=== PATIENT | male | born 1960 | race Caucasian/White ===

== ENCOUNTER 2016-04-29 11:27 | Emergency (ER) | payer OTHER ==
[~2016-04-29] VITALS: Ht 165.1 cm; Wt 74.8 kg
[~2016-04-29 11:27] MED LIST: CYMBALTA60 MG PO; Motrin,Rufen800 MG PO; REXULTI1 MG PO; VALIUM5 MG PO; ZANTAC150 MG PO; ZOFRAN4 MG PO; ZYPREXA15 M1 PO
[2016-04-29 12:26] LABS: BASO # 0.1 10*3/uL (0.0-0.1); BASO % 0.5 % (0.0-1.0); EOS % 0.3 % (1.0-4.0); HEMATOCRIT 43.8 % (42.0-52.0); HEMOGLOBIN 14.8 g/dl (14.0-18.0); LYMPH # 1.1 10*3/uL (1.3-4.4); LYMPH % 7.6 % (27.0-41.0); MEAN CELL VOLUME 91.6 fl (80.0-94.0); MEAN CORPUSCULAR HGB CONC 33.8 g/dl (33.0-37.0); MEAN PLATELET VOLUME 10.3 fl (9.6-12.3); MONO # 0.6 10*3/uL (0.1-1.0); MONO % 4.4 % (3.0-9.0); NEUT # 12.1 10*3/uL (2.3-7.9); NEUT % 86.9 % (47.0-73.0); PLATELET COUNT AUTOMATED 197 10*3/uL (130-400); RED BLOOD COUNT 4.78 10*6/uL (4.50-5.90); RED CELL DISTRI WIDTH 13.8 % (0-14.5); WHITE BLOOD COUNT 13.9 10*3/uL (4.8-10.8)
[2016-04-29 12:45] LABS: ALBUMIN 3.3 gm/dl (3.1-4.5); ALKALINE PHOSPHATASE 52 U/L (45-117); BILIRUBIN, TOTAL 0.4 mg/dl (0.2-1.0); BUN 24 mg/dl (7-24); CARBON DIOXIDE 22 mmol/L (21-32); CHLORIDE 109 mmol/L (98-107); EST GLOM FILT AFRICAN AMERICAN > 60 ml/min; GLUCOSE 162 mg/dL (65-99); MAGNESIUM 2.2 mg/dL (1.5-2.1); POTASSIUM 3.8 mmol/L (3.5-5.1); SGOT/AST 14 IU/L (3-35); SGPT/ALT 23 U/L (12-78); SODIUM 146 mmol/L (136-145); TOTAL PROTEIN 7.2 gm/dL (6.4-8.2)
[2016-04-29 12:46] LABS: TROPONIN I < 0.015 ng/ml (<0.045)
[2016-04-29 13:01] LABS: INTERNATIONAL NORM RATIO 1.1 (2.0-3.5); PROTHROMBIN TIME 11.3 SECONDS (9.0-12.4)
[2016-04-29 13:01] LABS: BILIRUBIN NEGATIVE (NEGATIVE); BLOOD 3+ (NEGATIVE); CLARITY SL CLOUDY (CLEAR); COLOR YELLOW (YELLOW); GLUCOSE NEGATIVE (NEGATIVE); KETONE 1+ (NEGATIVE); LEUKO ESTERASE NEGATIVE (NEGATIVE); NITRITE NEGATIVE (NEGATIVE); PH 5.5 (5.0-9.0); PROTEIN NEGATIVE (NEGATIVE); UROBILINOGEN 0.2 E.U./dl (0.2-1.0)
[2016-04-29 13:11] LABS: BACTERIA TRACE; RBC 21-30 rbc/hpf (0-2)
[2016-04-29 13:12] LABS: URINE AMPHETAMINES < 1000 (1000ng/ml); URINE BARBITURATES < 200 (200ng/ml); URINE COCAINE < 300 (300ng/ml); URINE REFLEX COMMENT YES (NO)
== END 2016-04-29 14:25 | disposition short-term general hospital (02) ==
LOC: ED 11:27
PROVIDERS: Emergency Medicine Emergency Medical Services
DX: R41.82 Altered mental status, unspecified (principal)

== ENCOUNTER 2016-05-02 15:20 | Inpatient (IN) | payer OTHER ==
[~2016-05-02] VITALS: Ht 180.3 cm; Wt 63.5 kg
--- NOTE | ~2016-05-02 | WRIGHTHP ---
[place], [place] PATIENT HISTORY AND PHYSICAL EXAM NAME: SHALA CANTU JR [facility] #: [id number] UNIT #: [id number] ROOM: 317 DOCTOR: IGNACIO VALERIO MD BIRTHDATE: [birth year] DOS: 05/02/2016 CHIEF COMPLAINT: "I tried to commit suicide. I have been so depressed." HISTORY OF PRESENT ILLNESS: This is a 56-year-old white male who was admitted to the [facility] for suicidal ideation. The patient had been admitted to [facility] for suicide attempt several days ago when he swallowed a handful of Seroquel. The patient reports that he has dealt with episodic depression and mood lability for sometime and has not always been compliant with his medicine. He is very vague, however, upon admission as far as what symptoms he is having. Complicating matters is there is the possibility that legal charges are pending. He is admitted now to further rule out organic factors to gather more information, to engage in individual and an milieu activity while restabilizing on medication. PAST MEDICAL HISTORY: Remarkable for degenerative disk disease, COPD, and a long history of bipolar disorder. MENTAL STATUS: The patient is alert and oriented to person, place, and time. Mood is somewhat down with anxious overtones and he does endorse mood lability. There are no auditory or visual hallucinations. No delusions, no paranoia. Short, intermediate, and long-term memory is intact. DIAGNOSIS: Bipolar type 1, mixed. PLAN: I have started him back on Cymbalta 60 mg at bedtime, Zyprexa 20 mg at bedtime. I will discontinue the Vraylar. He does report in the past that the Zyprexa has been helpful: Screening examination show him to have a low vitamin D level. We will treat him with vitamin D 50,000 International Units weekly, engage in individual and an milieu therapy, returning home or to the least restrictive environment when stable. IGNACIO VALERIO MD CM:HISPHYS:PATIENT HISTORY AND PHYSICAL EXAMINATION [phone] IGNACIO VALERIO MD 05/03/16 0939 interface
--- NOTE | ~2016-05-02 | DS ---
[place], [place] DISCHARGE SUMMARY NAME[id number] UN[facility] #: [id number] ROOM: 317 DOCTOR: IGNACIO VALERIO MD BIRTHDATE: [birth year] DOS: 05/05/2016 CHIEF COMPLAINT: "I tried to commit suicide. I have been so depressed." HISTORY OF PRESENT ILLNESS: This is a 56-year-old white male who was admitted to the [facility] for suicidal ideation. Initially, the patient was admitted to [facility] for suicide attempts several days ago during which time he had swallowed a handful of Seroquel. Per the patient's report, he has dealt with episodic depression and mood lability for years, but has not always been compliant with his medication. Upon admission here, he was very vague and stated that his symptoms have come and gone, but have been worsening lately. Complicating matters is the fact that there are apparent legal charges pending and the patient may be utilizing the hospitalization to avoid these charges. In any case, he was admitted now to the [facility] to rule out further organic factors, to gain more information as to what the situation truly is, to help him engage in individual and an milieu activity while attempting to restabilize on medication. PAST MEDICAL HISTORY: Remarkable for degenerative disk disease, COPD, and a reported long history of bipolar disorder. SUMMARY OF THE HOSPITAL COURSE: The patient was admitted to the unit where he was started back on his Cymbalta 60 mg at bedtime. His Lamictal was likewise continued. The patient did report that he has done the best when he has been on Zyprexa, stating that the Zyprexa not only stabilizes his mood, but it does also help him sleep better and eat better. Given the fact that he is a rather thin gentleman, it was felt that the Zyprexa would be a reasonable medication to utilize so his Vraylar that was initially started was discontinued in lieu of Zyprexa 20 mg at bedtime. Initial screening examinations to rule out organic factors did show him to have a very low vitamin D level. So, vitamin D 50,000 International Units weekly was started. After just several days of medication, the patient did report that his sleep and appetite normalized, that his mood did seem to improve, he was voicing positive plans for discharge and felt ready to return back home into the [facility]. The patient convincingly denied any suicidal thoughts, homicidal thoughts, or self-injurious thoughts and was voicing positive plans for the future. Likewise, he denied any somnolence, sedation, extrapyramidal symptoms, or tardive dyskinesia. The patient was discharged then on 05/05/2016 to return home. Follow up will be with the [facility]. MENTAL STATUS AT DISCHARGE: The patient is alert and oriented to person, place, and time. Mood was fairly euthymic. Affect appropriate. There were no symptoms of carlos or hypomania. There were no overt auditory or visual hallucinations. No delusions, no paranoia. Short, intermediate, and long-term memory were intact. FINAL DIAGNOSIS: Bipolar type 2. PLAN: The patient is to return home. All of his prescriptions have been E-scribed to [facility] and he will have followup at the [facility]. [place], [place] DISCHARGE SUMMARY NAME: PEPE BENNETTJULIAHANK Lynn [facility] [id number] UNIT #: [id number] ROOM: [facility] DOCTOR: IGNACIO VALERIO MD BIRTHDATE: [birth year] IGNACIO VALERIO MD CM:ARPAN 1 IGNACIO VALERIO MD 05/05/16 0853 interface
--- NOTE | ~2016-05-02 | PR ---
[place], [place] PROGRESS NOTE [id number] #: [id number] ROOM: 317 DOCTOR: LEONELA EASTON BIRTHDATE: [birth year] DOS: 05/04/2016 CHIEF COMPLAINT: "Good morning." SUMMARY OF VISIT: The patient was assessed and interviewed in the dining room where he has finished up breakfast and he was drinking coffee. He engaged readily in conversation. States that he has got a good appetite. He slept very well last night, does not feel that there are any side effects of the medications. There is no voiced complaints from Nursing. No voice complaints from patient. When I asked if he was anxious, worried, or depressed, he is no. MENTAL STATUS: He is alert and oriented to person, place, time and mood. I think he is trending towards euthymic. I am not sure that he is not a little anxious or worried based on his current legal situations, but he did state that he feels like he is doing better than he was when he first got here. There are no overt signs of auditory or visual hallucinations, delusions, paranoia, carlos or hypomania. Overall, memory appears to be intact. ASSESSMENT AND PLAN: He was started back on his medications. He stated that he took all his medications as prescribed yesterday. I will continue with the current medications since he has had significant medication adjustments in the last 24 hours. We will continue with the medications as is and adjust accordingly. LUIS EASTON CNP CM:PNTRANS [phone] LEONELA EASTON 05/04/16 1001 interface
[2016-05-02] MEDS ORDERED: LAMOTRIGINE100 MG PO (15:40)
[2016-05-02] MEDS ORDERED: K-LOR 20MEQ20 ME1 PO (15:44)
[2016-05-02] MEDS ORDERED: K-Lor 20MEQ20 MEQ PO (15:44)
[2016-05-02 17:52] VITALS: BP 136/85
[2016-05-02 17:57] VITALS: BP 136/85
[2016-05-02 19:58] LABS: URINE AMPHETAMINES < 1000 (1000ng/ml); URINE BARBITURATES < 200 (200ng/ml); URINE COCAINE < 300 (300ng/ml)
[2016-05-02 20:49] VITALS: BP 121/70
[2016-05-03 06:42] LABS: BASO # 0.1 10*3/uL (0.0-0.1); BASO % 1.2 % (0.0-1.0); EOS # 0.3 10*3/uL (0.0-0.4); EOS % 4.7 % (1.0-4.0); HEMATOCRIT 39.7 % (42.0-52.0); HEMOGLOBIN 13.4 g/dl (14.0-18.0); LYMPH # 2.1 10*3/uL (1.3-4.4); LYMPH % 32.4 % (27.0-41.0); MEAN CELL VOLUME 91.1 fl (80.0-94.0); MEAN CORPUSCULAR HGB 30.7 pg (27.0-31.0); MEAN CORPUSCULAR HGB CONC 33.8 g/dl (33.0-37.0); MEAN PLATELET VOLUME 9.8 fl (9.6-12.3); MONO # 0.7 10*3/uL (0.1-1.0); MONO % 10.9 % (3.0-9.0); NEUT # 3.3 10*3/uL (2.3-7.9); NEUT % 50.5 % (47.0-73.0); PLATELET COUNT AUTOMATED 206 10*3/uL (130-400); RED BLOOD COUNT 4.36 10*6/uL (4.50-5.90); RED CELL DISTRI WIDTH 13.2 % (0-14.5); WHITE BLOOD COUNT 6.6 10*3/uL (4.8-10.8)
[2016-05-03 06:58] LABS: HEMOGLOBIN A1c 5.6 % (4.8-5.6)
[2016-05-03 07:18] LABS: ALBUMIN 2.9 gm/dl (3.1-4.5); BUN 8 mg/dl (7-24); CARBON DIOXIDE 32 mmol/L (21-32); CHLORIDE 105 mmol/L (98-107); CHOLESTEROL 127 mg/dL (<200); EST GLOM FILT AFRICAN AMERICAN > 60 ml/min; GLUCOSE 90 mg/dL (65-99); POTASSIUM 3.1 mmol/L (3.5-5.1); SGOT/AST 31 IU/L (3-35); SGPT/ALT 28 U/L (12-78); SODIUM 144 mmol/L (136-145); TRIGLYCERIDES 79 mg/dl (<150); VLDL CHOLESTEROL 16 mg/dL (6-40)
[2016-05-03 07:25] LABS: VITAMIN D, 25-HYDROXY 11.2 ng/mL (30-100)
[2016-05-03 07:26] LABS: FOLIC ACID 14.28 ng/mL (>5.38)
[2016-05-03 07:28] LABS: ALKALINE PHOSPHATASE 46 U/L (45-117); BILIRUBIN, TOTAL 0.5 mg/dl (0.2-1.0); HDL CHOLESTEROL 33 mg/dl (40-60); LDL CHOLESTEROL 78 mg/dL (9-159); TOTAL PROTEIN 6.5 gm/dL (6.4-8.2)
[2016-05-03 08:30] VITALS: BP 120/75; BP 145/76
[2016-05-03 17:14] LABS: BILIRUBIN NEGATIVE (NEGATIVE); BLOOD NEGATIVE (NEGATIVE); CLARITY CLOUDY (CLEAR); COLOR YELLOW (YELLOW); GLUCOSE NEGATIVE (NEGATIVE); KETONE NEGATIVE (NEGATIVE); LEUKO ESTERASE NEGATIVE (NEGATIVE); NITRITE NEGATIVE (NEGATIVE); PROTEIN NEGATIVE (NEGATIVE); SPECIFIC GRAVITY 1.015 (1.005-1.030)
[2016-05-03 17:23] LABS: BACTERIA 2+; EPITHELIAL CELLS 0-2; URINE REFLEX COMMENT YES (NO)
[2016-05-03 20:13] VITALS: BP 125/74
[2016-05-04 08:10] VITALS: BP 126/73
[2016-05-04 19:00] VITALS: BP 112/76
[2016-05-05] MEDS ORDERED: OLANZAPINE10 MG PO (07:53)
[2016-05-05] MEDS ORDERED: HYDROXYZINE PAM25 M1 PO (07:53)
[2016-05-05] MEDS ORDERED: VITAMIN D50000 I3 PO (07:53)
[2016-05-05 08:14] VITALS: BP 140/83
[2016-05-05] MEDS ORDERED: KLOR-CON M2020 ME1 PO (12:15)
== END 2016-05-05 13:35 | disposition home or self-care (01) | DRG 885 ==
LOC: 3N 15:20
PROVIDERS: Psychiatry & Neurology Psychiatry
DX: F31.81 Bipolar II disorder (principal); R00.1 Bradycardia, unspecified; M19.90 Unspecified osteoarthritis, unspecified site; J44.9 Chronic obstructive pulmonary disease, unspecified; F41.9 Anxiety disorder, unspecified; F12.10 Cannabis abuse, uncomplicated; F19.10 Other psychoactive substance abuse, uncomplicated; E87.6 Hypokalemia; Z79.1 Long term (current) use of non-steroidal anti-inflammatories (NSAID)

== ENCOUNTER → 2016-06-27 | Outpatient (CLI) | payer OTHER ==
[~2016-06-27] MED LIST changes: +HYDROXYZINE PAM25 M1 PO; +K-LOR 20MEQ20 ME1 PO; +K-Lor 20MEQ20 MEQ PO; +KLOR-CON M2020 ME1 PO; +LAMOTRIGINE100 MG PO; +OLANZAPINE10 MG PO; +VITAMIN D50000 I3 PO
[2016-06-27 11:52] LABS: BASO # 0.1 10*3/uL (0.0-0.1); BASO % 1.4 % (0.0-1.0); EOS # 0.1 10*3/uL (0.0-0.4); EOS % 1.4 % (1.0-4.0); HEMATOCRIT 46.7 % (42.0-52.0); HEMOGLOBIN 15.7 g/dl (14.0-18.0); LYMPH # 1.6 10*3/uL (1.3-4.4); LYMPH % 29.4 % (27.0-41.0); MEAN CELL VOLUME 91.4 fl (80.0-94.0); MEAN CORPUSCULAR HGB 30.7 pg (27.0-31.0); MEAN CORPUSCULAR HGB CONC 33.6 g/dl (33.0-37.0); MEAN PLATELET VOLUME 9.8 fl (9.6-12.3); MONO # 0.5 10*3/uL (0.1-1.0); MONO % 9.5 % (3.0-9.0); NEUT # 3.2 10*3/uL (2.3-7.9); NEUT % 57.9 % (47.0-73.0); PLATELET COUNT AUTOMATED 241 10*3/uL (130-400); RED BLOOD COUNT 5.11 10*6/uL (4.50-5.90); RED CELL DISTRI WIDTH 13.5 % (0-14.5); WHITE BLOOD COUNT 5.6 10*3/uL (4.8-10.8)
[2016-06-27 12:06] LABS: ALBUMIN 3.8 gm/dl (3.1-4.5); ALKALINE PHOSPHATASE 58 U/L (45-117); BILIRUBIN, TOTAL 0.5 mg/dl (0.2-1.0); BUN 12 mg/dl (7-24); CARBON DIOXIDE 30 mmol/L (21-32); CHLORIDE 106 mmol/L (98-107); CHOLESTEROL 166 mg/dL (<200); EST GLOM FILT AFRICAN AMERICAN > 60 ml/min; GLUCOSE 95 mg/dL (65-99); HDL CHOLESTEROL 48 mg/dl (40-60); LDL CHOLESTEROL 103 mg/dL (9-159); POTASSIUM 3.9 mmol/L (3.5-5.1); SGOT/AST 19 IU/L (3-35); SGPT/ALT 25 U/L (12-78); SODIUM 140 mmol/L (136-145); TOTAL PROTEIN 7.7 gm/dL (6.4-8.2); TRIGLYCERIDES 75 mg/dl (<150); VLDL CHOLESTEROL 15 mg/dL (6-40)
== END | disposition home or self-care (01) ==
LOC: LAB 11:15
PROVIDERS: Nurse Practitioner Family
DX: F31.81 Bipolar II disorder (principal)

== ENCOUNTER 2017-10-26 13:51 | Inpatient (IN) | payer OTHER ==
[~2017-10-26] VITALS: Ht 177.8 cm; Wt 61.7 kg
--- NOTE | ~2017-10-26 | DS ---
[place], [place] DISCHARGE SUMMARY NAME: SHALA CANTU JR [facility] #: [id number] UNIT #: [id number] ROOM: 312 DOCTOR: IGNACIO VALERIO MD BIRTHDATE: [birth year] DOS: 10/29/2017 CHIEF COMPLAINT: "I ran out of my medicine and I got so depressed." HISTORY OF PRESENT ILLNESS: This is a 57-year-old white male who presented to the Emergency Room at [facility] with worsening depression and suicidal ideation and a plan. The patient had just been discharged from the [facility] and was stabilized on Zyprexa and Cymbalta; however, he missed his appointment at [facility] with Eve Huffman and ran out of his medicine. He went 3 weeks without being on these medicines and decompensated greatly. He became very depressed and very preoccupied with . The auditory hallucinations came back and were keeping him awake at night and making him feel overwhelmed. He felt that the only way out was to commit suicide. Instead, he went to the Emergency Room for help and was admitted to the [facility] to re-stabilize on medication. SUMMARY OF HOSPITAL COURSE: The patient was admitted to the unit where he was restarted on Zyprexa 10 mg twice daily and Cymbalta 60 mg a day. The Cymbalta was later increased to 60 mg twice daily while the Zyprexa was maintained at its 10 mg twice daily dose. It was not long before he began to notice improvement in his mood. His sleep and appetite normalized very quickly. The voices within a matter of days dissipated. He voiced no side effects from the medicine and was very happy that he was back on his medicines and stated that these medicines worked the best for him than anything he has been on. We discussed ways he needed to keep himself healthy and follow up with his outpatient appointments, so this does not happen again. He was discharged then on 10/29/2017 to return home. MENTAL STATUS AT DISCHARGE: He is alert and oriented. Mood does seem to be euthymic. Affect appropriate. There is no carlos, hypomania or psychosis. Short, intermediate, and long-term memory are fully intact. FINAL DIAGNOSIS: Major depression, recurrent with psychotic features. DISPOSITION: His prescriptions have been e-scribed to [facility]. He will have followup with Eve Huffman, the nurse practitioner at [facility]. He is stable medically and psychiatrically. [place], [place] DISCHARGE SUMMARY NAME: SHALA CANTU JR UNIT #: [id number] ROOM: 312 DOCTOR: IGNACIO VALERIO MD BIRTHDATE: [birth year] IGNACIO VALERIO MD CM:DISCHARG [id number] IGNACIO VALERIO MD 10/29/17 1001 interface
--- NOTE | ~2017-10-26 | WRIGHTHP ---
[place], [place] PATIENT HISTORY AND PHYSICAL EXAM [id number] #: [id number] ROOM: 312 DOCTOR: IGNACIO VALERIO MD BIRTHDATE: [birth year] DOS: 10/27/2017 INITIAL PSYCHIATRIC EVALUATION CHIEF COMPLAINT: "I ran out of my medicine and got so depressed." HISTORY OF PRESENT ILLNESS: This is a 57-year-old white male who presented to the Emergency Room at [facility] with worsening depression with suicidal ideation and a plan. The patient had just been discharged from the [facility] and stabilized on Zyprexa and Cymbalta; however, he missed his appointment at [facility] office and was out of his medicines. He went 3 weeks without being on Zyprexa or the Cymbalta and during this period of time, he became increasingly more despondent. His sleep became very poor to the point where he was not sleeping at night and the voices came back, he felt that the only way out was to take an overdose. Instead, he came to the Emergency Room for help. He does have previous overdose attempts in the past and multiple psychiatric admissions. He is admitted now to re-stabilize on medication, to engage in individual and an milieu activity, returning then to the least restrictive environment when psychiatrically stable. PAST MEDICAL HISTORY: Positive for degenerative disk disease, COPD, and bipolar disorder. SOCIAL HISTORY: He does not drink alcohol, use illicit drugs or smoke cigarettes. ALLERGIES: He has no known allergies. STRENGTHS: Ambulatory, good verbal skills, supportive environment. WEAKNESSES: Chronic severe mental health issues and poor coping skills. MENTAL STATUS: He is alert and oriented to person, place, and time. Mood is overwhelmingly depressed. Affect is flat, blunted with a constricted range. He endorses multiple neurovegetative symptoms. He also endorses positive hallucinations. There is no mood swings or carlos. Memory is fairly intact. DIAGNOSIS: Major depression, recurrent with psychotic features, rule out schizoaffective disorder. PLAN: I have restarted Zyprexa at 10 mg twice a day and started Cymbalta at 60 mg a day. I will increase the Cymbalta first bringing it to 60 mg twice daily, engage in individual and an milieu activity, returning to the least restrictive environment when psychiatrically stable. [place], [place] PATIENT HISTORY AND PHYSICAL EXAM NAME: SHALA CANTU JR UNIT #: [id number] ROOM: 312 DOCTOR: IGNACIO VALERIO MD BIRTHDATE: [birth year] IGNACIO VALERIO MD CM:HISPHYS:PATIENT HISTORY AND PHYSICAL EXAMINATION [id number] IGNACIO VALERIO MD 10/27/17 0811 interface
--- NOTE | ~2017-10-26 | PR ---
[place], [place] PROGRESS NOTE [id number] UNIT #: [id number] ROOM: 312 DOCTOR: IGNACIO VALERIO MD BIRTHDATE: [birth year] DOS: 10/28/2017 CHIEF COMPLAINT: "I am feeling better doctor. Thank you so much." SUMMARY OF THE VISIT: The patient was interviewed in his room. He was sitting at the edge of the bed, waiting for me to round. He engaged readily in conversation and reported to me that he slept well, ate well and is already noticing a difference now that he has resumed his medicines. He convincingly denies medication side effects. We discussed how we need to develop the system, so he does not run out of his medicines since he responds so robustly to them and decompensates very quickly without them. MENTAL STATUS: He is alert and oriented to person, place, and time. Mood is euthymic. Affect appropriate. No carlos, hypomania or psychosis exists. Memory is intact. PLAN: I will maintain his current psychotropic regimen. We will discuss the case with social insurance analyst, so we can put things in place to prevent relapse. IGNACIO VALERIO MD CM:PNTRANS 9 [phone] IGNACIO VALERIO MD 10/28/172201 interface
--- NOTE | ~2017-10-26 | EKG ---
[place], [place] ELECTROCARDIOGRAM REPORT NAME: SHALA CANTU JR UNIT #: [id number] ROOM: 312 DOCTOR: BOB DRAFT REPORT BIRTHDATE: [birth year] [facility] Test Date: 2017-10-26 Test Time: 14:33:10 Pat Name: SHALA CANTU Department: Room: 312 Gender: M Wiring Technician: : 1960 Requested By: ANTONELLA DUGAN PA-C Order Number: [id number] Reading MD: Verna Crowell MD Measurements Intervals Cornelius Rate: 65 P: 77 IL: 129 QRS: 75 QRSD: 99 T: 53 QT: 397 QTc: 413 Interpretive Statements Sinus rhythm RSR' in V1 or V2, right VCD or RVH Borderline ST elevation, anterolateral leads Electronically Signed On 10-29-2017 9:34:03 PDT by Verna Crowell MD CM:EKGRPT:ELECTROCARDIOGRAM REPORT [id number] ANTONELLA DUGAN PA-C EPIPHANY DRAFT REPORT ANTONELLA DUGAN PA-C
[2017-10-26 13:53] VITALS: BP 120/58
[2017-10-26 14:53] LABS: BILIRUBIN NEGATIVE (NEGATIVE); BLOOD TRACE-INTACT (NEGATIVE); CLARITY CLEAR (CLEAR); COLOR YELLOW (YELLOW); GLUCOSE NEGATIVE (NEGATIVE); KETONE NEGATIVE (NEGATIVE); LEUKO ESTERASE TRACE (NEGATIVE); NITRITE NEGATIVE (NEGATIVE); SPECIFIC GRAVITY <= 1.005 (1.005-1.030); UROBILINOGEN 0.2 E.U./dl (0.2-1.0)
[2017-10-26 14:56] LABS: BASO # 0.1 10*3/uL (0.0-0.1); EOS # 0.3 10*3/uL (0.0-0.4); EOS % 4.6 % (1.0-4.0); HEMATOCRIT 44.7 % (42.0-52.0); HEMOGLOBIN 14.5 g/dl (14.0-18.0); LYMPH # 2.1 10*3/uL (1.3-4.4); LYMPH % 30.3 % (27.0-41.0); MEAN CELL VOLUME 92.7 fl (80.0-94.0); MEAN CORPUSCULAR HGB 30.1 pg (27.0-31.0); MEAN CORPUSCULAR HGB CONC 32.4 g/dl (33.0-37.0); MEAN PLATELET VOLUME 10.6 fl (9.6-12.3); MONO # 0.7 10*3/uL (0.1-1.0); MONO % 9.8 % (3.0-9.0); NEUT # 3.8 10*3/uL (2.3-7.9); PLATELET COUNT AUTOMATED 210 10*3/uL (130-400); RED BLOOD COUNT 4.82 10*6/uL (4.50-5.90); RED CELL DISTRI WIDTH 14.6 % (0-14.5)
[2017-10-26 15:03] LABS: URINE AMPHETAMINES < 1000 (1000ng/ml); URINE BARBITURATES < 200 (200ng/ml); URINE BENZODIAZEPINES > 200 (200ng/ml); URINE CANNABINOIDS (THC) > 50 (50ng/ml); URINE COCAINE < 300 (300ng/ml); URINE METHADONE < 300 (300ng/ml); URINE OPIATES < 300 (300ng/ml)
[2017-10-26 15:04] LABS: URINE PHENCYCLIDINE < 25 (25ng/ml)
[2017-10-26 15:14] LABS: ALBUMIN 3.4 gm/dl (3.1-4.5); BUN 14 mg/dl (7-24); CHLORIDE 105 mmol/L (98-107); CREATININE 1.11 mg/dL (0.70-1.30); POTASSIUM 3.8 mmol/L (3.5-5.1); SGPT/ALT 30 U/L (12-78); SODIUM 141 mmol/L (136-145)
[2017-10-26 15:15] LABS: ALKALINE PHOSPHATASE 50 U/L (45-117); SGOT/AST 15 IU/L (3-35)
[2017-10-26 15:17] LABS: ACETAMINOPHEN (TYLENOL) < 2.0 ug/ml (10-30); ETHYL ALCOHOL < 3.0 mg/dl (<3)
[2017-10-26 15:23] LABS: THYROID STIM HORMONE (HS) 0.983 uIU/ml (0.358-4.75)
[2017-10-26 15:33] LABS: BACTERIA TRACE; EPITHELIAL CELLS 0-3; RBC 0-2 rbc/hpf (0-2); WBC 0-2 wbc/hpf (0-5)
[2017-10-26] MEDS ORDERED: IBU800 M2 PO (18:27)
[2017-10-26 18:30] VITALS: BP 112/62
[2017-10-26 18:41] VITALS: BP 108/67; BP 112/62
[2017-10-26 19:55] VITALS: BP 108/67
[2017-10-27 07:16] LABS: CHOLESTEROL 121 mg/dL (<200); TRIGLYCERIDES 95 mg/dl (<150); VLDL CHOLESTEROL 19 mg/dL (6-40)
[2017-10-27 07:18] LABS: HDL CHOLESTEROL 33 mg/dl (40-60); LDL CHOLESTEROL 69 mg/dL (9-159)
[2017-10-27 07:53] VITALS: BP 118/73
[2017-10-27 19:42] VITALS: BP 120/67
[2017-10-28 07:47] VITALS: BP 107/66
[2017-10-28 19:58] VITALS: BP 119/73
[2017-10-29 07:58] VITALS: BP 114/66
[2017-10-29] MEDS ORDERED: Vitamin D PO (08:42)
[2017-10-29] MEDS ORDERED: LAMOTRIGINE100 MG PO (08:42)
[2017-10-29] MEDS ORDERED: DULOXETINE HCL60 MG PO ×2 (08:42)
[2017-10-29] MEDS ORDERED: OLANZAPINE10 MG PO (08:42)
[2017-12-25] MEDS ORDERED: LAMOTRIGINE100 MG PO (16:38)
[2017-12-25] MEDS ORDERED: MUCINEX ER600 MG PO (16:38)
[2017-12-25] MEDS ORDERED: GOOD NEIGHBOR L10 MG PO (16:38)
[2017-12-25] MEDS ORDERED: OLANZAPINE10 MG PO (16:38)
[2017-12-25] MEDS ORDERED: PREDNISONE10 MG PO (16:38)
[2017-12-25] MEDS ORDERED: DULOXETINE HCL60 MG PO (16:38)
[2018-01-08] MEDS ORDERED: CYMBALTA60 MG PO (13:28)
[2018-01-08] MEDS ORDERED: LAMICTAL100 MG PO (13:28)
[2018-01-08] MEDS ORDERED: OLANZAPINE10 MG PO (13:29)
[2018-01-12] MEDS ORDERED: OLANZAPINE10 MG PO (10:37)
[2018-01-12] MEDS ORDERED: DULOXETINE HCL60 MG PO (10:37)
[2018-01-12] MEDS ORDERED: OLANZAPINE5 MG PO (10:37)
== END 2017-10-29 16:45 | disposition home or self-care (01) | DRG 885 ==
LOC: ED 13:51 → 3N 17:02
PROVIDERS: Physician Assistant; Psychiatry & Neurology Psychiatry
DX: F33.3 Major depressive disorder, recurrent, severe with psychotic symptoms (principal); R45.851 Suicidal ideations; N39.0 Urinary tract infection, site not specified; J44.9 Chronic obstructive pulmonary disease, unspecified; F12.10 Cannabis abuse, uncomplicated; F13.10 Sedative, hypnotic or anxiolytic abuse, uncomplicated; M51.36 Other intervertebral disc degeneration, lumbar region; F41.9 Anxiety disorder, unspecified; Z79.899 Other long term (current) drug therapy

== ENCOUNTER 2018-10-21 09:58 | Emergency (ER) | payer OTHER ==
[~2018-10-21] VITALS: Ht 177.8 cm; Wt 61.2 kg
[~2018-10-21 09:58] MED LIST changes: +DULOXETINE HCL60 MG PO; +GOOD NEIGHBOR L10 MG PO; +IBU800 M2 PO; +LAMICTAL100 MG PO; +MUCINEX ER600 MG PO; +OLANZAPINE5 MG PO; +PREDNISONE10 MG PO; +Vitamin D PO
[2018-10-21 10:00] VITALS: BP 123/84
[2018-10-21 10:39] LABS: BASO # 0.1 10*3/uL (0.0-0.1); BASO % 0.7 % (0.0-1.0); EOS # 0.3 10*3/uL (0.0-0.4); EOS % 3.3 % (1.0-4.0); HEMATOCRIT 45.5 % (42.0-52.0); HEMOGLOBIN 14.8 g/dl (14.0-18.0); LYMPH # 1.2 10*3/uL (1.3-4.4); MEAN CORPUSCULAR HGB 30.3 pg (27.0-31.0); MEAN CORPUSCULAR HGB CONC 32.5 g/dl (33.0-37.0); MEAN PLATELET VOLUME 10.2 fl (9.6-12.3); MONO # 0.9 10*3/uL (0.1-1.0); MONO % 9.7 % (3.0-9.0); NEUT # 6.9 10*3/uL (2.3-7.9); NEUT % 73.1 % (47.0-73.0); PLATELET COUNT AUTOMATED 239 10*3/uL (130-400); RED BLOOD COUNT 4.89 10*6/uL (4.50-5.90); RED CELL DISTRI WIDTH 14.9 % (0-14.5); WHITE BLOOD COUNT 9.4 10*3/uL (4.8-10.8)
[2018-10-21 10:49] LABS: BUN 9 mg/dl (7-24); CHLORIDE 104 mmol/L (98-107); CREATININE 0.91 mg/dL (0.70-1.30); POTASSIUM 3.7 mmol/L (3.5-5.1); SODIUM 139 mmol/L (136-145)
[2018-10-21 10:50] LABS: ACT PARTIAL THROMBO TIME 28.3 SECONDS (20.0-32.1)
[2018-10-21] MEDS ORDERED: CLINDAMYCIN HC300 MG PO (14:11)
[2018-10-21] MEDS ORDERED: TYLENOL325 M1 PO (14:11)
[2018-10-21] MEDS ORDERED: NAPROSYN500 MG PO (14:11)
== END 2018-10-21 14:22 | disposition home or self-care (01) ==
LOC: ED 09:58
PROVIDERS: Emergency Medicine
DX: L03.114 Cellulitis of left upper limb (principal); J44.9 Chronic obstructive pulmonary disease, unspecified; F17.210 Nicotine dependence, cigarettes, uncomplicated

== ENCOUNTER 2019-09-25 09:54 | Emergency (ER) | payer OTHER ==
[~2019-09-25] VITALS: Ht 177.8 cm; Wt 61.2 kg
[~2019-09-25 09:54] MED LIST changes: +CLINDAMYCIN HC300 MG PO; +NAPROSYN500 MG PO; +TYLENOL325 M1 PO
[2019-09-25 09:58] VITALS: BP 140/85
[2019-09-25] MEDS ORDERED: MEDROL DOSEPAK4 MG PO (10:38)
[2019-09-25] MEDS ORDERED: NAPROSYN500 MG PO (10:38)
[2019-09-25] MEDS ORDERED: METHOCARBAMOL500 M1 PO (10:38)
== END 2019-09-25 11:16 | disposition home or self-care (01) ==
LOC: ED 09:54
DX: S39.012A Strain of muscle, fascia and tendon of lower back, initial encounter (principal); F17.200 Nicotine dependence, unspecified, uncomplicated; X50.0XXA Overexertion from strenuous movement or load, initial encounter; Y93.89 Activity, other specified; Y92.89 Other specified places as the place of occurrence of the external cause; Y99.8 Other external cause status

== ENCOUNTER 2020-04-10 09:02 | Emergency (ER) | payer OTHER ==
[~2020-04-10] VITALS: Ht 177.8 cm; Wt 61.2 kg
[~2020-04-10 09:02] MED LIST changes: +MEDROL DOSEPAK4 MG PO; +METHOCARBAMOL500 M1 PO
[2020-04-10 09:18] VITALS: BP 134/84
[2020-04-10] MEDS ORDERED: AMOXICILLIN500 M3 PO (10:12)
== END 2020-04-10 10:40 | disposition home or self-care (01) ==
LOC: ED 09:02
DX: K04.7 Periapical abscess without sinus (principal); J44.9 Chronic obstructive pulmonary disease, unspecified; F41.9 Anxiety disorder, unspecified; F31.9 Bipolar disorder, unspecified; F17.210 Nicotine dependence, cigarettes, uncomplicated; Z79.899 Other long term (current) drug therapy; Z79.2 Long term (current) use of antibiotics; Z90.89 Acquired absence of other organs

== ENCOUNTER 2020-11-19 08:56 | Emergency (ER) | payer OTHER ==
[~2020-11-19] VITALS: Ht 177.8 cm; Wt 61.2 kg
[~2020-11-19 08:56] MED LIST changes: +AMOXICILLIN500 M3 PO
[2020-11-19 09:15] VITALS: BP 145/82
[2020-11-19] MEDS ORDERED: IBUPROFEN600 MG PO (11:44)
[2020-11-19] MEDS ORDERED: AUGMENTIN 875-875 MG PO (11:44)
== END 2020-11-19 12:20 | disposition home or self-care (01) ==
LOC: ED 08:56
DX: K04.7 Periapical abscess without sinus (principal)

== ENCOUNTER 2025-01-14 20:13 | Emergency (ER) | payer OTHER ==
[~2025-01-14] VITALS: Ht 172.7 cm; Wt 59.4 kg
[~2025-01-14 20:13] MED LIST changes: +AUGMENTIN 875-875 MG PO; +EPINEPHrine Hydrochloride 1 MG/10 ML SYR IV ONE; +IBUPROFEN600 MG PO; +MIRTAZAPINE30 M2 PO; +OLANZAPINE20 M2 PO; +VITAMIN D350 MCG PO
[2025-01-14] MEDS ORDERED: SODIUM CHLORIDE 0.9% 1,000 ML IV ONE (20:25)
[2025-01-14] MEDS ORDERED: EPINEPHrine IN 0.9 % SOD CHLOR 250 ML IV SCH (20:25)
[2025-01-14 20:40] LABS: BASO # 0.1 10*3/uL (0.0-0.1); BASO % 0.8 % (0.0-1.0); EOS # 0.1 10*3/uL (0.0-0.4); EOS % 1.3 % (1.0-4.0); MEAN CELL VOLUME 101.8 fl (80.0-94.0); MEAN CORPUSCULAR HGB 30.1 pg (27.0-31.0); MEAN PLATELET VOLUME 9.8 fl (9.6-12.3); MONO # 0.8 10*3/uL (0.1-1.0); MONO % 7.7 % (3.0-9.0); NEUT # 7.1 10*3/uL (2.3-7.9); NEUT % 71.4 % (47.0-73.0); NUCLEATED RED BLOOD CELL 0.0 10*3/uL (0.0-0.0); NUCLEATED RED BLOOD CELL 0.2 % (0.0-0.0); PLATELET COUNT AUTOMATED 172 10*3/uL (130-400); RED CELL DISTRI WIDTH 15.3 % (0-14.5)
[2025-01-14 20:55] LABS: BUN 32 mg/dl (9-23)
[2025-01-14 21:05] VITALS: BP 136/87
== END 2025-01-14 22:16 | disposition short-term general hospital (02) ==
LOC: ED 20:13
PROVIDERS: Internal Medicine
DX: I46.9 Cardiac arrest, cause unspecified (principal); F17.200 Nicotine dependence, unspecified, uncomplicated; Z79.899 Other long term (current) drug therapy; Z90.89 Acquired absence of other organs